=== PATIENT | male | born 1975 | race Caucasian/White ===

== ENCOUNTER → 2018-04-03 | Outpatient (CLI) | payer OTHER ==
--- NOTE | 2018-04-03 09:34 | Diagnostic Imaging Report ---
PROCEDURE: MRI right upper extremity without contrast. TECHNIQUE: Multiplanar, multisequence non contrast-enhanced MRI of the upper extremity was accomplished. INDICATION: Right thumb pain after injury. COMPARISON: None available. FINDINGS: Bones: There is no fracture, bone contusion or marrow replacing process within the thumb. Ligaments: The radial and ulnar collateral ligaments of the thumb MCP and IP joints are intact. The volar plate at the thumb MCP is intact. Muscles and tendons: The flexor pollicis longus and brevis are intact. A small amount of vague intramuscular edema is present along the myotendinous junction of the abductor pollicis brevis and flexor pollicis brevis tendons. Their distal insertions remain intact. IMPRESSION: 1. Vague non-masslike edema within the distal aspects of the abductor pollicis brevis and flexor pollicis brevis muscles is most compatible with low-grade muscle strain versus muscle contusion. 2. The radial and ulnar collateral ligaments of the thumb MCP are intact. 3. No fracture or bone contusion. Dictated by: Dictated on workstation # [id number]
== END ==
LOC: RAD 07:15
PROVIDERS: ATTEND Orthopaedic Surgery
DX: S69.91XA Unspecified injury of right wrist, hand and finger(s), initial encounter (principal)
CPT/HCPCS: 73218